=== PATIENT | male | born 1985 | race Caucasian/White ===

== ENCOUNTER 2017-11-30 20:48 | Emergency (ER) | payer OTHER ==
[2017-11-30 21:14] VITALS: BP 138/78
--- NOTE | 2017-11-30 21:57 | UC ---
Nausea/Vomiting/Diarrhea HPI - HPI Summary HPI Summary: States he is here camping with his family and ate a meal that was 'not quite right and I am pretty sure I have food poisoning". Started with vomiting and diarrhea yesterday night and today his stool normalized but vomited once again 2 hrs ago at 7:30p. Denies currently having nausea and is very thirsty. States he had some chills last night but no fever. He complains of abdominal discomfort and bloating but no pain - History of Current Complaint Chief Complaint: UCGeneralIllness Stated Complaint: VOMITING Time Seen by Provider: 11/30/17 21:37 Hx Obtained From: Patient Onset/Duration: Sudden Onset, Lasting Days Severity Initially: Moderate Severity Currently: Mild Pain Intensity: 3 Location: Diffuse Character: Not Applicable Aggravating Factor(s): Nothing Alleviating Factor(s): Nothing Nausea/Vomiting Presence: Vomiting Vomiting Frequency: Daily Nausea/Vomiting Duration: 12-24 hours Vomiting Characteristics: Nonbilious Diarrhea Presence: Yes Diarrhea Frequency: Daily Diarrhea Duration: 12-24 hours Diarrhea Characteristics: Watery - Risk Factors Influenza Risk Factors: Negative Surgical Obstruction Risk Factor(s): Negative - Allergies/Home Medications Allergies/Adverse Reactions: Allergies Allergy/AdvReac Type Severity Reaction Status Date / Time No Known Allergies Allergy Verified 11/30/17 21:14 Home Medications: Home Medications Bismuth Subsalicylate [Pepto-Bismol Max Strength] 525 mg PO 11/30/17 [History] Ibuprofen [Advil] 400 11/30/17 [History] Loperamide CAP* [Imodium CAP*] 11/30/17 [History] Meclizine TAB* [Antivert 12.5 TAB*] 11/30/17 [History] Omeprazole 11/30/17 [History] PMH/Surg Hx/FS Hx/Imm Hx Previously Healthy: Yes - Surgical History Surgical History: None - Family History Known Family History: Positive: None - Social History Alcohol Use: Weekly Substance Use Type: None Smoking Status (MU): Never Smoked Tobacco Review of Systems Constitutional: Negative Gastrointestinal: Vomiting, Diarrhea, Nausea All Other Systems Reviewed And Are Negative: Yes Physical Exam Triage Information Reviewed: Yes Appearance: Well-Appearing, No Pain Distress, Well-Nourished Vital Signs: Initial Vital Signs Temp 99.4 F 09/29/18 21:07 Pulse 98 11/30/17 21:07 Resp 16 11/30/17 21:07 BP 138/78 11/30/17 21:07 Pulse Ox 97 11/30/17 21:07 Vital Signs Reviewed: Yes Eyes: Positive: Conjunctiva Clear ENT: Positive: Hearing grossly normal, Pharynx normal, Uvula midline Neck: Positive: Supple, Nontender, No Lymphadenopathy Respiratory: Positive: Chest non-tender, Lungs clear, Normal breath sounds, No respiratory distress Cardiovascular: Positive: RRR, No Murmur, Pulses Normal, Brisk Capillary Refill Abdomen Description: Positive: Nontender, No Organomegaly, Soft, Distended Bowel Sounds: Positive: Present Musculoskeletal: Positive: Strength Intact, ROM Intact, No Edema Neurological: Positive: Alert, Muscle Tone Normal Skin Exam: Normal Naus/Vom/Diarrhea Course/Dx - Course Course Of Treatment: oral fluid challenge given at . Patient tolerated fluids without vomiting but became nauseous. IVF bolus of 250cc of NS 0.9% given. Continue hydration and BRAT diet, avoid caffeine and dairy for now and slowly advance diet. Zofran as needed for nausea - Differential Dx/Diagnosis Provider Diagnoses: Food poisoning. Nausea and vomiting Is Visit Related: No Discharge - Sign-Out/Discharge Documenting (check all that apply): Patient Departure All imaging exams completed and their final reports reviewed: No Studies - Discharge Plan Condition: Stable Disposition: HOME Patient Education Materials: Acute Nausea and Vomiting (ED), Food Poisoning (ED ), Ondansetron (By mouth) Referrals: No Primary Care Phys,NOPCP [Primary Care Provider] - [facility] [place] [facility] [Outside] - Billing Disposition and Condition Condition: STABLE Disposition: Home
[2017-11-30] MEDS ORDERED: Ondansetron ODT TAB* 4 MG PO ONE ×2 (22:18→22:50)
[2017-11-30] MEDS ORDERED: NS 0.9% 1000 ML* 1,000 ML IV ONE (22:41)
[2017-11-30] MEDS ORDERED: NS 0.9% 1000 ML* 1,000 ML IV SCH (22:45)
== END 2017-11-30 23:08 | disposition home or self-care (01) ==
LOC: UCEAST 20:48
DX: T62.91XA Toxic effect of unspecified noxious substance eaten as food, accidental (unintentional), initial encounter (principal); R11.2 Nausea with vomiting, unspecified; R19.7 Diarrhea, unspecified; Y92.9 Unspecified place or not applicable
CPT/HCPCS: 96360; 99202; A9270-GY; G0463